=== PATIENT | female | born 1995 | race Two or more races ===

== ENCOUNTER → 2022-06-24 09:23 | Outpatient (BNVA) | payer MEDICAID, SELFPAY | PROVIDERS: PCP Internal Medicine Sports Medicine; Visit Provider Advanced Practice Midwife | DX: Z32.01 Encounter for pregnancy test, result positive (principal) | CPT/HCPCS: 99202 ==

== ENCOUNTER 2022-06-27 13:28 | Outpatient (REF) | payer MEDICAID, SELFPAY ==
--- NOTE | ~2022-06-27 | US_ITS ---
EXAMINATION: US OBSTETRICAL ULTRASOUND CLINICAL INFORMATION: Positive test. COMPARISON: None. LMP: 05/27/2022. Gestational age by maternal dates is 4 weeks 3 days. Estimated date of delivery by maternal dates is 03/03/23. TECHNIQUE: Routine retroperitoneal ultrasound imaging performed. FINDINGS: There is a single intrauterine gestational sac visualized. No pole, yolk sac or heartbeat. There is no significant subchorionic hemorrhage or hematoma. MATERNAL ADNEXA: The right maternal ovary measures 3.0 x 2.0 x 2.1 cm. There is an anechoic corpus luteal cyst measuring 1.6 x 1.6 x 1.2 cm. The left maternal ovary measures 2.1 x 1.7 x 1.8 cm. No focal lesion seen. There is no significant maternal adnexal mass. No maternal pelvic ascites. US/US OB pelvic and transvaginal IMPRESSION: 1. Single intrauterine gestation in the posterior right aspect of uterus. No pole or yolk sac seen. 2. A corpus luteal cyst is visualized measuring 1.6 x 1.6 x 1.2 cm in right ovary.
== END 2022-06-27 13:29 | disposition home or self-care (01) ==
LOC: HO.US 13:28
PROVIDERS: Visit Provider Advanced Practice Midwife
DX: Z34.91 Encounter for supervision of normal pregnancy, unspecified, first trimester (principal); Z3A.01 Less than 8 weeks gestation of pregnancy
CPT/HCPCS: 76801; 76817

== ENCOUNTER 2022-07-03 12:55 | Outpatient (REF) | payer MEDICAID, SELFPAY ==
[2022-07-03 14:18] LABS: HCG Quantitative 13054 mIU/mL
== END 2022-07-03 12:56 | disposition home or self-care (01) ==
LOC: HO.LAB 12:55
PROVIDERS: PCP Internal Medicine Sports Medicine; Visit Provider Advanced Practice Midwife
DX: Z32.01 Encounter for pregnancy test, result positive (principal)
CPT/HCPCS: 36415; 84702

== ENCOUNTER 2022-08-08 10:50 | Outpatient (REF) | payer MEDICAID, SELFPAY ==
--- NOTE | ~2022-08-08 | US_ITS ---
EXAMINATION: US OBSTETRICAL ULTRASOUND CLINICAL INFORMATION: Encounter for . COMPARISON: Previous ultrasound 06/27/2022. LMP: 05/27/2022. Gestational age by maternal dates is 10 weeks 3 days. Estimated date of delivery by maternal dates is 03/03/2023. TECHNIQUE: Transabdominal imaging of pelvis is performed. FINDINGS: There is a single intrauterine gestational sac with nonvisualization of yolk sac. The pole and heart rate is visualized. There is no significant subchorionic hemorrhage or hematoma. HR: 165 beats per minute. CRL (crown rump length): 4.0 cm (11 weeks 0 days +/- 4 days). BESSIE (estimated date of delivery): 02/27/2023 +/- 4 days. MATERNAL ADNEXA: The right maternal ovary measures 3.8 x 2.2 x 2.4 cm. It appears unremarkable. The left maternal ovary measures 2.9 x 1.6 x 2.0 cm. It appears unremarkable. There is no significant maternal adnexal mass. No maternal pelvic ascites. US/US OB <= 14 weeks fetus IMPRESSION: 1. Single intrauterine gestation with ultrasound gestational age of 11 weeks and 0 days +/- 4 days. 2. Estimated date of delivery is 02/27/2023 +/- 4 days. 3. No maternal adnexal mass or pelvic ascites.
== END 2022-08-08 10:51 | disposition home or self-care (01) ==
LOC: HO.US 10:50
PROVIDERS: Visit Provider Advanced Practice Midwife
DX: Z34.91 Encounter for supervision of normal pregnancy, unspecified, first trimester (principal); Z3A.10 10 weeks gestation of pregnancy
CPT/HCPCS: 76801